=== PATIENT | female | born 1940 | race African-American/Black ===

== ENCOUNTER 2016-11-27 13:43 | Emergency (ER) | payer MEDICARE, MEDICAID ==
[2016-11-27] MEDS ORDERED: IBUPROFEN 600 MG TABLET PO ONE (14:17)
--- NOTE | 2016-11-27 14:20 | ER Document Report ---
ED Extremity Problem, Lower - General Chief Complaint: Knee Injury Stated Complaint: KNEE PAIN Time seen by provider: 14:19 Mode of Arrival: Wheelchair Information source: Patient Notes: 75-year-old female presents to ED for pain in her left knee. She states she hit the coffee table with her knee last night. States it hurts to walk now. TRAVEL OUTSIDE OF THE [place] IN LAST 30 DAYS: No - HPI Patient complains to provider of: Injury, Pain Location: Knee - Left Occurred: Yesterday Where: Home, Indoors Onset/Duration: Sudden, Persistent Severity: Moderate Pain Level: 3 Context: Direct blow Recent injury: Possibly Associated symptoms: Painful ambulation Exacerbated by: Movement, Walking Relieved by: Nothing - Related Data Allergies/Adverse Reactions: ampicillin [Ampicillin] Allergy (Verified 11/27/16 13:56) Past Medical History - General Information source: Patient - Social History Smoking Status: Former Smoker Cigarette use (# per day): No Chew tobacco use (# tins/day): No Smoking Education Provided: No Frequency of alcohol use: None Drug Abuse: None Occupation: retired Lives with: Other - Grandson Family History: DM, Hypertension Patient has suicidal ideation: No Patient has homicidal ideation: No - Past Medical History Cardiac Medical History: Reports: Hx Hypercholesterolemia, Hx Hypertension Pulmonary Medical History: Reports: None EENT Medical History: Reports: None Neurological Medical History: Reports: None Endocrine Medical History: Reports: None Renal/ Medical History: Reports: None Malignancy Medical History: Reports: None Musculoskeltal Medical History: Reports Hx Musculoskeletal Deformity Skin Medical History: Reports None Psychiatric Medical History: Reports: None Traumatic Medical History: Reports: None Infectious Medical History: Reports: None Surgical Hx: Negative Past Surgical History: Reports: None - Immunizations Hx Diphtheria, Pertussis, Tetanus Vaccination: Yes Review of Systems - Review of Systems Constitutional: No symptoms reported EENT: No symptoms reported Cardiovascular: No symptoms reported Respiratory: No symptoms reported Gastrointestinal: No symptoms reported Genitourinary: No symptoms reported Female Genitourinary: No symptoms reported Musculoskeletal: Joint pain - Left knee injury Skin: No symptoms reported Hematologic/Lymphatic: No symptoms reported Neurological/Psychological: No symptoms reported Physical Exam - Vital signs Vitals: Temp Pulse Resp BP Pulse Ox 98.7 F 68 16 148/99 H 98 11/27/16 13:58 11/27/16 13:58 11/27/16 13:58 11/27/16 13:58 11/27/16 13:58 Interpretation: Normal - General General appearance: Appears well, Alert - HEENT Head: Normocephalic, Atraumatic Eyes: Normal Pupils: PERRL - Respiratory Respiratory status: No respiratory distress Chest status: Nontender Breath sounds: Normal Chest palpation: Normal - Cardiovascular Rhythm: Regular Heart sounds: Normal auscultation Murmur: No - Abdominal Inspection: Normal Distension: No distension Bowel sounds: Normal Tenderness: Nontender Organomegaly: No organomegaly - Back Back: Normal, Nontender - Extremities General upper extremity: Normal inspection, Nontender, Normal color, Normal ROM , Normal temperature General lower extremity: Normal inspection, Normal color, Normal temperature, Normal weight bearing. No: Kriss's sign Knee: Tender, Ecchymosis, Pain with ROM, Patellar tendon intact. No: Abrasion, Dislocation, Drawer's test instability, Instability, Joint effusion, Laceration , Laxity with valgus stress, Laxity with varus stress, Popliteal fossa tender, Tender joint line - Neurological Neuro grossly intact: Yes Cognition: Normal Orientation: AAOx4 [place] Scale Eye Opening: Spontaneous [place] Scale Verbal: Oriented [place] Com[place] Scale Motor: Obeys Commands [place] Com[place] Scale Total: 15 Speech: Normal Motor strength normal: LUE, RUE, LLE, RLE Sensory: Normal - Psychological Associated symptoms: Normal affect, Normal mood - Skin Skin Temperature: Warm Skin Moisture: Dry Skin Color: Normal Course - Re-evaluation Re-evalutation: 11/27/16 17:04 Discussed x-ray report with patient and written report given to patient to follow-up with her primary doctor. No acute injuries to her knee arthritis. Patient encouraged to use elevation ice and ibuprofen. - Vital Signs Vital signs: Temp Pulse Resp BP Pulse Ox 98.4 F 61 16 163/106 H 97 11/27/16 15:46 11/27/16 15:46 11/27/16 15:46 11/27/16 15:46 11/27/16 15:46 - Diagnostic Test Radiology reviewed: Image reviewed, Reports reviewed Discharge - Discharge Clinical Impression: Contusion of left knee Qualifiers: Encounter type: initial encounter Qualified Code(s): S80.02XA - Contusion of left knee, initial encounter Condition: Stable Disposition: HOME, SELF-CARE Additional Instructions: CONTUSION: Your injury has resulted in a contusion -- a crushing of the deep tissues. No injury to important structures was detected during the physician's exam. Contusions vary in the amount of pain they cause, and in the length of time required for healing. Typically, the area will become bruised, and will remain painful to touch for two or three weeks. However, most patients are back to working and playing within a few days. After the initial period of rest and cold-packs, your symptoms (together with the doctor's recommendations) will determine how rapidly you can get back to full activity. Usually this means "do what feels okay, but don't do things that hurt." If re-examination was recommended, it's important to follow up as instructed. Call the doctor or return any time if pain increases, if swelling becomes severe, if you develop numbness or weakness in an injured extremity, or if any other alarming symptoms occur. USE OF TYLENOL (ACETAMINOPHEN): Acetaminophen may be taken for pain relief or fever control. It's much safer than aspirin, offering a wider range of "safe" dosages. It is safe during . Some brand names are Tylenol, Panadol, Datril, Anacin 3, Tempra, and Liquiprin. Acetaminophen can be repeated every four hours. The following are maximum recommended dosages: WEIGHT Dose Drops Elixir Chewable( 80mg) (LBS.) drprs=droppers tsp=teaspoon 6 40 mg 0.4 ml (1/2) 6-11 80 mg 0.8 ml (full) tsp 1 tab 12-16 120 mg 1 1/2 drprs 3/4 tsp 1 1/2 tabs 17-23 160 mg 2 drprs 1 tsp 2 tabs 24-30 240 mg 3 drprs 1 1/2 tsp 3 tabs 30-35 320 mg 2 tsp 4 tabs 36-41 360 mg 2 1/4 tsp 4 1/2 tabs 42-47 400 mg 2 1/2 tsp 5 tabs 48-53 480 mg 3 tsp 6 tabs 54-59 520 mg 3 1/4 tsp 6 1/2 tabs 60-64 560 mg 3 1/2 tsp 7 tabs 65-70 600 mg 3 3/4 tsp 7 1/2 tabs 71-76 640 mg 4 tsp 8 tabs 77-82 720 mg 4 1/2 tsp 9 tabs 83-88 800 mg 5 tsp 10 tabs >89 pounds or adults 650 mg to 900 mg Acetaminophen can be repeated every four hours. Maximum dose not to exceed 4000 mg a day. These maximum recommended dosages are slightly higher than the dosages written on the product container, but these dosages are very safe and below the toxic dosage for acetaminophen. RACHNA WRAP: A compression dressing (rachna wrap) has been placed. This helps hold the area still. It limits swelling and internal bleeding. The wrap should be comfortably snug -- not tight. You should feel a sense of pressure, but not severe pain under the wrap. Unless the physician tells you otherwise, you can adjust the wrap for comfort. If the wrap causes symptoms suggesting it's too tight -- uncomfortable pressure, swelling or discoloration beyond the wrap, numbness, or severe pain - - you must loosen the wrap. If these symptoms don't resolve promptly, return for re-evaluation. USE OF CRUTCHES: The doctor has recommended that you not bear weight at this time. You will need to use crutches. Adjust the crutches so the tops come to about two inches under the armpit while you are standing upright. Use your hands -- not your armpits -- to support your weight. To get into a chair, support yourself with one crutch on the injured side. Hold the chair with the other hand, then lower yourself while putting all your weight on the good leg. Going up stairs is `good leg up, step up, then bring up crutches and bad leg.' Down stairs is `bad leg and crutches down, then bring good leg down.' If you develop numbness or swelling in an arm or hand, you are using the crutches incorrectly. Return if you are having any problems with the crutches. ICE & ELEVATION: Apply ice packs frequently against the painful area. Many different schedules are recommended, such as "20 minutes on, 20 minutes off" or "one hour ice, two hours rest." If you need to work, you may need to go longer between ice treatments. You should plan to have the area ice packed AT LEAST one- fourth of the time. The ice should be applied over the wrap, tape, or splint, or over a layer of cloth -- not directly against the skin. Some ice bags have a built-in cloth and can be put directly on the skin. Your injured part should be elevated as much as possible over the next 48 hours. Try to keep the injury above the level of the heart. Avoid use of the injured area. Elevation and rest will decrease the swelling. USE OF DESH-EHZ-ELPLTJY IBUPROFEN: Ibuprofen (Advil, Nuprin, Medipren, Motrin IB) is a medication for fever and pain control. In addition, it has anti- inflammatory effects which may be beneficial, especially in the treatment of injuries. It's best to take ibuprofen with food. Persons with ulcer disease or allergy to aspirin should notify their physician of this before taking ibuprofen. Ibuprofen can be given every four to six hours, for a total of four doses daily. Age Pain or fever dose Antiinflammatory dose 6-8 yr 200 mg (1 tab) 200 mg (1 tab) 9-11 yr 200 mg (1 tab) 200-400 mg (1-2 tab) 11-14 yr 200-400 mg (1-2 tab) 400 mg (2 tab) 15-adult 400 mg (2 tab) 600 mg (3 tab) FOLLOW-UP CARE: If you have been referred to a physician for follow-up care, call the physician s office for an appointment as you were instructed or within the next two days. If you experience worsening or a significant change in your symptoms, notify the physician immediately or return to the Emergency Department at any time for re-evaluation. Forms: Elevated Blood Pressure Referrals: ANGEL TAM MD [Primary Care Provider] - Follow up as needed
[2016-11-27 15:47] VITALS: BP 163/106
== END 2016-11-27 15:50 | disposition home or self-care (01) ==
LOC: ER 13:43
DX: S80.02XA Contusion of left knee, initial encounter (principal); M25.562 Pain in left knee; Z87.891 Personal history of nicotine dependence; X58.XXXA Exposure to other specified factors, initial encounter
CPT/HCPCS: 99283; 73562; A9270

== ENCOUNTER 2017-02-26 06:41 | Emergency (ER) | payer MEDICARE, MEDICAID ==
[2017-02-26] MEDS ORDERED: ONDANSETRON 4 MG TAB.RAPDIS PO ONE (08:58)
[2017-02-26] MEDS ORDERED: OXYCODONE-ACETAMINOPHEN 5-325 MG TABLET PO ONE (08:58)
--- NOTE | 2017-02-26 09:34 | ER Document Report ---
HPI - HPI Patient complains to provider of: Left shoulder muscle strain Onset: Other - Today Onset/Duration: Gradual Quality of pain: Throbbing Pain Level: 4 Context: 76-year-old female strained her left trapezius muscle cooking a lot of food for family reunion this weekend. It started on Saturday and has gotten worse. Movement makes it worse. Heat seems to help. No chest pain or shortness of breath Associated Symptoms: None Exacerbated by: Movement Relieved by: Denies Recently seen / treated by doctor: Yes - ROS ROS Unobtainable: Yes ROS unobtainable due to patient's medical condition - REPRODUCTIVE Reproductive: DENIES: : - DERM Skin Color: Normal Past Medical History - General Information source: Patient - Social History Smoking Status: Never Smoker Frequency of alcohol use: None Drug Abuse: None Lives with: Alone Family History: DM, Hypertension Patient has suicidal ideation: No Patient has homicidal ideation: No - Past Medical History Cardiac Medical History: Reports: Hx Hypercholesterolemia, Hx Hypertension Renal/ Medical History: Denies: Hx Peritoneal Dialysis Musculoskeltal Medical History: Reports Hx Musculoskeletal Deformity Surgical Hx: Negative - Immunizations Hx Diphtheria, Pertussis, Tetanus Vaccination: Yes Vertical Provider Document - CONSTITUTIONAL Agree With Documented VS: Yes Exam Limitations: No Limitations General Appearance: Mild Distress - INFECTION CONTROL TRAVEL OUTSIDE OF THE [place] IN LAST 30 DAYS: No - HEENT HEENT: Atraumatic, Normocephalic - NECK Neck: Supple Notes: Point tender left trapezius muscle - RESPIRATORY Respiratory: Breath Sounds Normal, No Respiratory Distress O2 Sat by Pulse Oximetry: 100 - CARDIOVASCULAR Cardiovascular: Regular Rate, Regular Rhythm - BACK Back: Normal Inspection - Tender - MUSCULOSKELETAL/EXTREMETIES Musculoskeletal/Extremeties: FROM, Tender - The above Notes: Avoid movement of the left shoulder because it makes the muscle hurts worse - NEURO Level of Consciousness: Awake, Alert, Appropriate Motor/Sensory: No Motor Deficit, No Sensory Deficit - DERM Integumentary: Warm, Dry, No Rash Course - Vital Signs Vital signs: Temp Pulse Resp BP Pulse Ox 97.8 F 59 L 16 139/83 H 100 02/26/17 07:18 02/26/17 07:18 02/26/17 07:18 02/26/17 07:18 02/26/17 07:18 Discharge - Discharge Clinical Impression: Strain of left trapezius muscle Qualifiers: Encounter type: initial encounter Qualified Code(s): S46.812A - Strain of other muscles, fascia and tendons at shoulder and upper arm level, left arm, initial encounter Condition: Good Disposition: HOME, SELF-CARE Instructions: Warm Packs ([facility]), Sling as Treatment ([facility]), Temporary Sling ([facility]) Additional Instructions: warm compress to er if worse see your doctor for follow up sling to help rest the left trapezius muscle Please complete the patient satisfaction survey if you get one, and return it.. If you do not receive a survey, then you can go to the [facility] website, [email or web address] and place your comments about your very good care. Thank you very much. It was a pleasure being your medical provider today. Prescriptions: Oxycodone HCl/Acetaminophen [Percocet 5-325 mg Tablet] 1 tab PO ASDIR PRN #15 tablet PRN Reason: Referrals: ANGEL TAM MD [Primary Care Provider] - Follow up as needed
[2017-02-26 10:12] VITALS: BP 143/78
== END 2017-02-26 10:13 | disposition home or self-care (01) ==
LOC: ER 06:41
DX: S29.012A Strain of muscle and tendon of back wall of thorax, initial encounter (principal); X58.XXXA Exposure to other specified factors, initial encounter; I10 Essential (primary) hypertension
CPT/HCPCS: 99283; L3650; A9270 ×2; S0119

== ENCOUNTER 2017-05-17 11:41 | Emergency (ER) | payer MEDICARE, MEDICAID ==
--- NOTE | 2017-05-17 11:57 | ER Document Report ---
HPI - HPI Pain Level: 5 Notes: Patient is a 76-year-old female with a history of hypertension who presents the ED complaining of left plantar foot pain that began this morning. Patient states that she was push mowing her yard yesterday which has been the most stress that she has put on her feet in a while. Patient states that she woke up with the pain on her first morning step and has pain in that area since then. Patient tried Epsom salts soaking it with minimal relief. Patient does take Vicodin for pain for her previous shoulder surgery. The pain does not radiate. She has not noticed any redness, bruising, or deformity to the area. Patient denies any smoking or drug use. She denies any other significant past medical history. Denies any headache, fever, URI, sore throat, chest pain, palpitations, syncope, cough, shortness of breath, wheeze, dyspnea, abdominal pain, nausea/vomiting/diarrhea, back pain, numbness/tingling, or rash. - ROS Notes: REVIEW OF SYSTEMS: CONSTITUTIONAL : Denies fever, chills, or sweats. Denies recent illness. EENT: Denies eye, ear, throat, or mouth pain or symptoms. Denies nasal or sinus congestion or discharge. Denies throat, tongue, or mouth swelling or difficulty swallowing. CARDIOVASCULAR: Denies chest pain. Denies palpitations or racing or irregular heart beat. Denies ankle edema. RESPIRATORY: Denies cough, cold, or chest congestion. Denies shortness of breath, difficulty breathing, or wheezing. GASTROINTESTINAL: Denies abdominal pain or distention. Denies nausea, vomiting , or diarrhea. Denies blood in vomitus, stools, or per rectum. Denies black, tarry stools. Denies constipation. GENITOURINARY: Denies difficulty urinating, painful urination, burning, frequency, blood in urine, or discharge. MUSCULOSKELETAL: see hpi SKIN: Denies rash, lesions or sores. NEUROLOGICAL: Denies confusion or altered mental status. Denies passing out or loss of consciousness. Denies dizziness or lightheadedness. Denies headache. Denies weakness or paralysis or loss of use of either side. Denies problems with gait or speech. Denies sensory loss, numbness, or tingling. ALL OTHER SYSTEMS REVIEWED AND NEGATIVE. Dictation was performed using [employer] voice recognition software - REPRODUCTIVE Reproductive: DENIES: : Past Medical History - Social History Smoking Status: Never Smoker Family History: DM, Hypertension - Past Medical History Cardiac Medical History: Reports: Hx Hypercholesterolemia, Hx Hypertension Renal/ Medical History: Denies: Hx Peritoneal Dialysis Musculoskeltal Medical History: Reports Hx Musculoskeletal Deformity - Immunizations Hx Diphtheria, Pertussis, Tetanus Vaccination: Yes Vertical Provider Document - CONSTITUTIONAL Agree With Documented VS: Yes Notes: PHYSICAL EXAMINATION: GENERAL: Well-appearing, well-nourished and in no acute distress. LUNGS: Breath sounds clear to auscultation bilaterally and equal. No wheezes rales or rhonchi. HEART: Regular rate and rhythm without murmurs, rubs, gallops. Musculoskeletal: Lt foot/ankle: FROM to passive/active. Strength 5+/5. + tenderness to plantar fascia. No bony tenderness. N/V intact distal. Extremities: No cyanosis, clubbing, or edema b/l. Peripheral pulses 2+. Capillary refill less than 3 seconds. NEUROLOGICAL: Normal speech, ataxic gait. Normal sensory, motor exams PSYCH: Normal mood, normal affect. SKIN: Warm, Dry, normal turgor, no rashes or lesions noted. - INFECTION CONTROL TRAVEL OUTSIDE OF THE [place] IN LAST 30 DAYS: No - RESPIRATORY O2 Sat by Pulse Oximetry: 98 Course - Re-evaluation Re-evalutation: 05/17/17 12:08 Patient is an afebrile, well-hydrated, 76-year-old female who presents the ED with left foot pain, suspect plantar fasciitis based on H&P today. Vitals are stable. PE otherwise unremarkable for any neurovascular compromise. Low suspicion/risk for any septic joint, sepsis, fracture, dislocation. Patient is aware that her condition can change from initial presentation and she needs to monitor symptoms closely and seek medical attention if any acute changes. No other imaging warranted today. Crutches were provided. I will send her home with a prescription for naproxen to use as directed. Conservative measures otherwise for symptoms. Recheck with your PCM in 2-3 days. Consider consult with orthopedics/physical therapy. Return to the ED with any worsening/ concerning symptoms otherwise as reviewed discharge. Patient is in agreement. - Vital Signs Vital signs: Temp Pulse Resp BP Pulse Ox 97.9 F 86 18 140/95 H 98 05/17/17 11:43 05/17/17 11:43 05/17/17 11:43 05/17/17 11:43 05/17/17 11:43 Discharge - Discharge Clinical Impression: Plantar fasciitis of left foot Condition: Stable Disposition: HOME, SELF-CARE Instructions: Plantar Fasciitis or Heel Spur ([facility]), Ice & Elevation ([facility]), Warm Packs ([facility]), Epsom Salt Soaks ([facility]) Additional Instructions: Rest, Ice, Compression, Elevation Tylenol/ibuprofen as needed Light stretches daily Strength exercises as able Moist heat and massage may help F/u with your PCP in 2-3 days for a recheck Consider consult(s) with Orthopedics/physical therapy for ongoing/worsening symptoms Return to the ED with any worsening symptoms and/or development of fever, headache, chest pain, palpitations, syncope, shortness of breath, trouble breathing, abdominal pain, n/v/d, muscle weakness/paralysis, numbness/tingling, swelling, redness, or other worsening symptoms that are concerning to you. Prescriptions: Naproxen 500 mg PO BID PRN #30 tablet PRN Reason: Forms: Elevated Blood Pressure Referrals: [facility] [Provider Group] - Follow up as needed ANGEL TAM MD [ACTIVE STAFF] - Follow up in 3-5 days
[2017-05-17 12:35] VITALS: BP 143/96
== END 2017-05-17 12:37 | disposition home or self-care (01) ==
LOC: ER 11:41
DX: M72.2 Plantar fascial fibromatosis (principal); M79.672 Pain in left foot; I10 Essential (primary) hypertension; Z98.890 Other specified postprocedural states
CPT/HCPCS: 99283

== ENCOUNTER 2018-05-31 17:05 | Inpatient (IN) | payer MEDICARE, MEDICAID ==
--- NOTE | 2018-05-31 17:27 | RADIOLOGY REPORT (SQ) ---
EXAM DESCRIPTION: CT HEAD WITHOUT COMPLETED DATE/TIME: 05/31/2018 5:13 pm REASON FOR STUDY: bed 11 stroke alert confused, difficulty speaking COMPARISON: None. TECHNIQUE: Axial images acquired through the brain without intravenous contrast. Images reviewed wi th bone, brain and subdural windows. Additional sagittal and coronal reconstructions were generated. Images stored on PACS. All CT scanners at this facility use dose modulation, iterative reconstruction, and/or weight based d osing when appropriate to reduce radiation dose to as low as reasonably achievable (ALARA). [facility]: Dose Right [facility]: CareDose [facility]: Dose Right [facility]: Teradose 4D [facility]: [employer] RADIATION DOSE: CT Rad equipment meets quality standard of care and radiation dose reduction techniq ues were employed. CTDIvol: 55.2 mGy. DLP: 1084 mGy-cm. mGy. LIMITATIONS: None. FINDINGS: VENTRICLES: Normal size and contour. CEREBRUM: Low-attenuation from acute or early subacute infarct in the left frontal lobe inferiorly on axial images 16-19, and in the anterior left frontal lobe over the convexity on axial images 24-28. Mild local mass effect with sulcal effacement. No acute superimposed hemorrhage. No midline shift. CEREBELLUM: No masses. No hemorrhage. No alteration of density. No evidence for acute infarction. EXTRAAXIAL SPACES: No fluid collections. No masses. ORBITS AND GLOBE: No intra- or extraconal masses. Normal contour of globe without masses. CALVARIUM: No fracture. PARANASAL SINUSES: No fluid or mucosal thickening. SOFT TISSUES: No mass or hematoma. OTHER: Very heavily calcified parasellar carotid arteries. 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 EVIDENCE OF ACUTE STROKE: Yes COMMENT: Pertinent findings on the imaging study reported as a CRITICAL RESULT to Dr. Miller at17: 12 on 05/31/2018. Category of Critical Result: CT stroke alert Quality ID # [id number]: Final reports with documentation of one or more dose reduction techniques (e.g., Au tomated exposure control, adjustment of the mA and/or kV according to patient size, use of iterative reconstruction technique) TECHNICAL DOCUMENTATION: JOB ID: [id number] [employer]- All Rights Reserved Reading location - IP/workstation name: [email or web address]
--- NOTE | 2018-05-31 17:30 | RADIOLOGY REPORT (SQ) ---
EXAM DESCRIPTION: CHEST SINGLE VIEW COMPLETED DATE/TIME: 05/31/2018 5:20 pm REASON FOR STUDY: bed 11 stroke alert COMPARISON: None. EXAM PARAMETERS: NUMBER OF VIEWS: One view. TECHNIQUE: Single frontal radiographic view of the chest acquired. RADIATION DOSE: NA LIMITATIONS: None. FINDINGS: LUNGS AND PLEURA: No opacities, masses or pneumothorax. No pleural effusion. MEDIASTINUM AND HILAR STRUCTURES: No masses. Contour normal. HEART AND VASCULAR STRUCTURES: Marked cardiomegaly. BONES: No acute findings. HARDWARE: None in the chest. OTHER: No other significant finding. IMPRESSION: NO ACUTE RADIOGRAPHIC FINDING IN THE CHEST. MARKED CARDIOMEGALY TECHNICAL DOCUMENTATION: JOB ID: [id number] [employer]- All Rights Reserved Reading location - IP/workstation name: [email or web address]
[2018-05-31 17:44] LABS: ABSOLUTE EOSINOPHILS # (AUTO) 0.1 10^3/uL (0.0-0.6); ABSOLUTE MONOCYTES (AUTO) 0.7 10^3/uL (0.1-1.4); BASOPHILS % (AUTO) 0.5 % (0-2); EOSINOPHILS % (AUTO) 0.7 % (0-6); HEMATOCRIT 39.6 % (36.0-47.0); LYMPHOCYTES % (AUTO) 12.9 % (13-45); MEAN CORPUSCULAR HEMOGLOBIN 27.1 pg (27.0-33.4); MEAN CORPUSCULAR HGB CONC 32.7 g/dL (32.0-36.0); MEAN CORPUSCULAR VOLUME 83 fl (80-97); MONOCYTES % (AUTO) 9.3 % (3-13); PLATELET COUNT 255 10^3/uL (150-450); RED BLOOD COUNT 4.78 10^6/uL (3.72-5.28); RED CELL DISTRIBUTION WIDTH 14.4 % (11.5-14.0); SEGMENTED NEUTROPHILS % (AUTO) 76.6 % (42-78); TOTAL CELLS COUNTED % (AUTO) 100 %; WHITE BLOOD COUNT 7.9 10^3/uL (4.0-10.5)
[2018-05-31 17:51] LABS: INTERNATIONAL RATION (INR) 0.98; PROTHROMBIN TIME 13.5 SEC (11.4-15.4)
[2018-05-31 17:52] LABS: PARTIAL THROMBOPLASTIN TIME 25.9 SEC (23.5-35.8)
[2018-05-31 18:10] LABS: ALANINE AMINOTRANSFERASE 32 U/L (9-52); ALBUMIN 4.6 g/dL (3.5-5.0); ALKALINE PHOSPHATASE 90 U/L (38-126); ANION GAP 9 (5-19); ASPARTATE AMINO TRANSFERASE 42 U/L (14-36); BILIRUBIN,DIRECT 0.6 mg/dL (0.0-0.4); BILIRUBIN,TOTAL 1.1 mg/dL (0.2-1.3); BLOOD UREA NITROGEN 16 mg/dL (7-20); CALCIUM 10.1 mg/dL (8.4-10.2); CARBON DIOXIDE 26 mmol/L (22-30); CHLORIDE 105 mmol/L (98-107); CREATINE KINASE 539 U/L (30-135); GLUCOSE 90 mg/dL (75-110); POTASSIUM 3.7 mmol/L (3.6-5.0); SODIUM 140.2 mmol/L (137-145); TOTAL PROTEIN 8.4 g/dL (6.3-8.2)
[2018-05-31 18:22] LABS: CREATINE KINASE MB 4.99 ng/mL (<4.55); TROPONIN I 0.02 ng/mL
[2018-05-31 18:37] LABS: APPEARANCE,URINE CLOUDY; BILIRUBIN,URINE NEGATIVE (NEGATIVE); COLOR,URINE YELLOW; GLUCOSE, URINE NEGATIVE (NEGATIVE); KETONES,URINE TRACE mg/dL (NEGATIVE); LEUKOCYTE ESTERASE,URINE SMALL (NEGATIVE); NITRITE,URINE POSITIVE (NEGATIVE); PROTEIN,URINE 30 mg/dL (NEGATIVE); URINE SPECIFIC GRAVITY 1.017; UROBILINOGEN,URINE NEGATIVE mg/dL (<2.0)
[2018-05-31] MEDS ORDERED: ACETAMINOPHEN 650 MG SUPP.RECT PR PRN (18:50)
[2018-05-31] MEDS ORDERED: POTASSI CL 20 MEQ/1/2NS 1L 20 MEQ/1,000 ML RTUINJ IV PRN (18:50)
[2018-05-31] MEDS ORDERED: ONDANSETRON HCL INJ/PF 4 MG/2 ML SDV IV PRN (18:50)
[2018-05-31] MEDS ORDERED: LABETALOL HCL INJ 20 MG/4 ML DISP.SYRIN IV PRN (18:50)
[2018-05-31] MEDS ORDERED: MORPHINE SULFATE 10 MG/ML INJ IV PRN (19:12)
--- NOTE | 2018-05-31 19:19 | EKG REPORT ---
SEVERITY:- ABNORMAL ECG - ATRIAL FIBRILLATION, V-RATE 49-89 VENTRICULAR PREMATURE COMPLEX BORDERLINE LEFT AXIS DEVIATION CONSIDER ANTEROSEPTAL INFARCT BORDERLINE T ABNORMALITIES, INFERIOR LEADS : Confirmed by: Birgit Bishop 31-May-2018 19:18:34
--- NOTE | 2018-05-31 19:22 | ER Document Report ---
ED Neuro Symptoms/Deficit - General Chief Complaint: Altered Mental Status Stated Complaint: POSSIBLE STROKE Time Seen by Provider: 05/31/18 18:03 Notes: Patient was found by neighbors laying on her porch, down for an unknown amount of time. Neighbors say that she has been acting different for the past couple of days. At this time, patient is not speaking and did not speak with EMS all the way here to the hospital. We do not know if she has had a previous stroke. No family or anyone else is available to give any further information. I believe the patient lives alone. At this time, she will follow minor instructions such as holding her arm up when I let go of it, attempting to smile when I asked her to do so. However, she does not carry on a conversation. TRAVEL OUTSIDE OF THE [place] IN LAST 30 DAYS: No - Related Data Allergies/Adverse Reactions: ampicillin [Ampicillin] Allergy (Verified 05/17/17 11:47) Past Medical History - Social History Smoking Status: Unknown if Ever Smoked Family History: Reviewed & Not Pertinent, DM, Hypertension Patient has suicidal ideation: No Patient has homicidal ideation: No - Past Medical History Cardiac Medical History: Reports: Hx Hypercholesterolemia, Hx Hypertension Neurological Medical History: Denies: Hx Cerebrovascular Accident Musculoskeletal Medical History: Reports Hx Musculoskeletal Deformity - Immunizations Hx Diphtheria, Pertussis, Tetanus Vaccination: Yes Review of Systems - Review of Systems -: Yes ROS unobtainable due to patient's medical condition Physical Exam - Vital signs Vitals: Pulse Resp BP Pulse Ox 84 14 185/100 H 98 05/31/18 17:05 05/31/18 17:05 05/31/18 17:05 05/31/18 17:05 Interpretation: Hypertensive - Mild - Notes Notes: PHYSICAL EXAMINATION: GENERAL: Well-appearing, in no acute distress. Blood pressure slightly elevated at 185/100. HEAD: Atraumatic, normocephalic. EYES: Pupils equal round and reactive to light, extraocular movements intact. ENT: oropharynx clear without exudates. Moist mucous membranes. NECK: Normal range of motion, supple. No carotid bruits heard. LUNGS: Breath sounds clear and equal bilaterally. HEART: Irregularly irregular rhythm. No murmurs heard. Appears to be A. fib on the monitor. ABDOMEN: Soft, nontender. No guarding or rebound. No masses. BACK: No tenderness throughout entire back. EXTREMITIES: Normal range of motion without pain. NEUROLOGICAL: Cannot stand or ambulate. Does not speak. Will attempt to follow requests such as attempts to smile when requested. Will hold up either arm when I raise it above her body. No facial asymmetry noted. Grossly normal sensory, motor, and reflex exams. Awake, alert, but unable to assess if she is oriented. PSYCH: Unable to assess. SKIN: Warm, dry, no rashes. Course - Re-evaluation Re-evalutation: 05/31/18 19:30 It is uncertain how long the patient has been down with her apparent stroke. It has been approximately an hour since her neighbors found her upon her arrival to the emergency department. No one knows how long she was on the porch prior to the neighbors discovering her. She does not fit into the 3-hour or 4-1/2-hour window is because we do not know how long she was down. - Vital Signs Vital signs: Temp Pulse Resp BP Pulse Ox 98.7 F 55 L 16 178/92 H 98 05/31/18 17:57 05/31/18 17:57 05/31/18 19:01 05/31/18 19:01 05/31/18 19:01 - Laboratory Result Diagrams: 05/31/18 17:30 05/31/18 17:30 Laboratory results interpreted by me: 05/31/18 05/31/18 05/31/18 17:30 17:30 17:30 RDW 14.4 H Lymphocytes % 12.9 L Est GFR ( Amer) 57 L Est GFR (Non-Af Amer) 47 L Direct Bilirubin 0.6 H AST 42 H Creatine Kinase 539 H CK-MB (CK-2) 4.99 H Total Protein 8.4 H Urine Protein Urine Ketones Urine Blood Urine Nitrite Ur Leukocyte Esterase 05/31/18 17:35 RDW Lymphocytes % Est GFR ( Amer) Est GFR (Non-Af Amer) Direct Bilirubin AST Creatine Kinase CK-MB (CK-2) Total Protein Urine Protein 30 H Urine Ketones TRACE H Urine Blood SMALL H Urine Nitrite POSITIVE H Ur Leukocyte Esterase SMALL H - Diagnostic Test Radiology reviewed: Image reviewed, Reports reviewed - Fracture CT scan of the brain shows a left frontal, nonhemorrhagic, subacute stroke. - EKG Interpretation by Me Rate: Normal Rhythm: A.Fib, PVC's Discharge - Discharge Clinical Impression: Stroke Condition: Stable Disposition: ADMITTED INPATIENT Admitting Provider: Hospitalist Unit Admitted: Telemetry Referrals: ANGEL TAM MD [Primary Care Provider] - Follow up as needed
--- NOTE | 2018-05-31 20:18 | PDOC H&P ---
History of Present Illness Admission Date/PCP: ANGEL TAM MD Patient complains of: Right-sided weakness History of Present Illness: GEN WHITE is a 77 year old female who presented to the emergency room with a history of waking this morning with right-sided weakness and the inability to speak. She is accompanied by her daughter who relates that she saw her mother last evening before supper and she was normal at that time. Using head nods and shakes Gen has been able to tell me that she was fine when she went to bed last night when she woke this morning she was unable to move her right arm or her right leg to any degree and was unable to speak or call out for help. She evidently crawled out onto her porch and was discovered by neighbors sometime later in the afternoon. EMS was summoned to bring her to the hospital. Upon arrival in the emergency room she was noted to be hypertensive 185/100 and had a right hemiparesis with an expressive aphasia. She has not identified any aggravating or ameliorating factors for her right sided weakness and a aphasia. She denies prior similar events. She admits that the sensation to her right upper and lower extremities as well as her right face is intact. She further admits that she has been having trouble swallowing her saliva and it tends to make her cough and sometimes gag. She denies headache, nausea, vomiting, chest pain, neck pain, palpitations, vertigo , lightheadedness, syncope, dyspnea, acute change in vision, acute change in hearing, acute change in her sense of smell and skin rashes. She admits to a past history of atrial fibrillation and also admits that she has been taking only aspirin as an anti-coagulant. She also has a history of hypertension and arthritis. Past Medical History Cardiac Medical History: Reports: Atrial Fibrillation, Hyperlipidema, Hypertension Pulmonary Medical History: Denies: Asthma, Chronic Obstructive Pulmonary Disease (COPD), Respiratory Failure EENT Medical History: Reports: None Neurological Medical History: Denies: Hemorrhagic CVA, Ischemic CVA, Seizures Endocrine Medical History: Denies: Diabetes Mellitus Type 1, Diabetes Mellitus Type 2, Hyperthyroidism, Hypothyroidism Renal/ Medical History: Denies: Chronic Kidney Disease, Nephrolithiasis Malignancy Medical History: Reports: None GI Medical History: Denies: Crohn's Disease, Gastroesophageal Reflux Disease, Peptic Ulcer Disease, Ulcerative Colitis Musculoskeltal Medical History: Reports: Arthritis Denies: Fibromyalgia, Gout Skin Medical History: Denies: Eczema, Psoriasis Psychiatric Medical History: Denies: Alcohol Dependency, Dementia, Depression, General Anxiety Disorder, Substance Abuse, Tobacco Dependency Traumatic Medical History: Reports: None Hematology: Denies: Anemia, Sickle Cell Disease, Bleeding Tendencies Infectious Medical History: Reports: None Past Surgical History Past Surgical History: Reports: None Social History Information Source: Patient, Relative - Daughter Lives with: Alone Smoking Status: Never Smoker Frequency of Alcohol Use: None Hx Recreational Drug Use: No Hx Prescription Drug Abuse: No - Advance Directive Resuscitation Status: Full Code Surrogate healthcare decision maker:: Her daughter Family History Family History: Arthritis, DM, Hypertension Parental Family History Reviewed: Yes Children Family History Reviewed: Yes Sibling(s) Family History Reviewed.: Yes Medication/Allergy Home Medications: Hydrochlorothiazide 25 mg PO DAILY 04/15/14 Sulfamethoxazole/Trimethoprim [Bactrim Ds Tablet] 1 each PO BID #10 tablet 04/15 Tramadol HCl [Ultram] 50 mg PO BID #14 tablet 04/15/14 Oxycodone HCl/Acetaminophen [Percocet 5-325 mg Tablet] 1 - 2 tab PO Q4H PRN #14 tablet 10/16/14 Naproxen [Naprosyn 250 mg Tablet] 250 mg PO BID #10 tablet 06/11/15 Oxycodone HCl/Acetaminophen [Percocet 5-325 mg Tablet] 1 - 2 tab PO Q4HP PRN # 15 tablet 06/11/15 Lidocaine [Lidoderm 5% (700 mg) Transdermal Patch] 1 patch TP DAILY #15 adh..patch 07/13/16 Oxycodone HCl/Acetaminophen [Percocet 5-325 mg Tablet] 1 tab PO ASDIR PRN #15 tablet 02/26/17 Naproxen 500 mg PO BID PRN #30 tablet 05/17/17 Allergies/Adverse Reactions: ampicillin [Ampicillin] Allergy (Verified 05/17/17 11:47) Review of Systems Constitutional: ABSENT: chills, fever(s), headache(s) Eyes: ABSENT: visual disturbances, other - Ocular pain Ears: ABSENT: hearing changes, other - Ear pain Nose, Mouth, and Throat: ABSENT: headache(s), mouth pain, sore throat, vertigo Cardiovascular: ABSENT: chest pain, palpitations Respiratory: ABSENT: cough, dyspnea Gastrointestinal: ABSENT: abdominal pain, diarrhea, nausea, vomiting Genitourinary: ABSENT: dysuria, hematuria Musculoskeletal: PRESENT: joint swelling - With arthritis, other - Joint pain with arthritis. ABSENT: deformity Integumentary: ABSENT: pruritus, rash Neurological: PRESENT: as per HPI, abnormal speech, focal weakness, weakness. ABSENT: confusion, convulsions, dizziness, lack of coordination, memory loss, numbness, paresthesias, syncope, tingling, tremor(s), vertigo Psychiatric: ABSENT: anxiety, depression Endocrine: ABSENT: cold intolerance, heat intolerance, polydipsia, polyphagia, polyuria - [id number] Hematologic/Lymphatic: ABSENT: easy bleeding, easy bruising Physical Exam Vital Signs: Temp Pulse Resp BP Pulse Ox 98.7 F 55 L 16 178/92 H 98 05/31/18 17:57 05/31/18 17:57 05/31/18 19:01 05/31/18 19:01 05/31/18 19:01 Intake & Output 05/29/18 05/30/18 05/31/18 23:59 23:59 23:59 Weight 83 kg General appearance: PRESENT: no acute distress, cooperative, other - Unable to speak Head exam: PRESENT: atraumatic, normocephalic Eye exam: PRESENT: conjunctiva pink, EOMI, PERRLA. ABSENT: conjunctival injection, nystagmus, periorbital swelling, scleral icterus Ear exam: PRESENT: normal external ear exam. ABSENT: bleeding, drainage Mouth exam: PRESENT: dry mucosa, neck supple Neck exam: ABSENT: meningismus, thyromegaly, tracheal deviation Respiratory exam: PRESENT: clear to auscultation kyle, symmetrical, unlabored Cardiovascular exam: PRESENT: irregular rhythm. ABSENT: bradycardia, clicks, diastolic murmur, gallop, rubs, systolic murmur, tachycardia Pulses: PRESENT: normal carotid pulses, normal radial pulses, normal dorsalis pedis pul Vascular exam: PRESENT: normal capillary refill. ABSENT: pallor GI/Abdominal exam: PRESENT: normal bowel sounds, soft. ABSENT: distended, tenderness Rectal exam: PRESENT: deferred Extremities exam: ABSENT: clubbing, joint swelling, pedal edema Musculoskeletal exam: PRESENT: other - Right hemiparesis is noted with spared very limited movement and fingers and toes. ABSENT: deformity, dislocation Neurological exam: PRESENT: alert, awake, oriented to person, oriented to place , oriented to time, oriented to situation, motor sensory deficit - Right hemiparesis affecting the upper and lower extremities as well as the face with facial involvement being limited to the central 7th nerve distribution., aphasic - Expressive aphasia Psychiatric exam: PRESENT: appropriate affect, normal mood Skin exam: ABSENT: intact, jaundice, rash, urticaria Results Laboratory Results: 05/31/18 17:30 05/31/18 17:30 05/31/18 05/31/18 05/31/18 17:30 17:30 17:35 WBC 7.9 RBC 4.78 Hgb 13.0 Hct 39.6 MCV 83 MCH 27.1 MCHC 32.7 RDW 14.4 H Plt Count 255 Seg Neutrophils % 76.6 Lymphocytes % 12.9 L Monocytes % 9.3 Eosinophils % 0.7 Basophils % 0.5 Absolute Neutrophils 6.0 Absolute Lymphocytes 1.0 Absolute Monocytes 0.7 Absolute Eosinophils 0.1 Absolute Basophils 0.0 Sodium 140.2 Potassium 3.7 Chloride 105 Carbon Dioxide 26 Anion Gap 9 BUN 16 Creatinine 1.13 Est GFR ( Amer) 57 L Est GFR (Non-Af Amer) 47 L Glucose 90 Calcium 10.1 Total Bilirubin 1.1 AST 42 H ALT 32 Alkaline Phosphatase 90 Total Protein 8.4 H Albumin 4.6 Urine Color YELLOW Urine Appearance CLOUDY Urine pH 5.0 Ur Specific Dell 1.017 Urine Protein 30 H Urine Glucose (UA) NEGATIVE Urine Ketones TRACE H Urine Blood SMALL H Urine Nitrite POSITIVE H Ur Leukocyte Esterase SMALL H Urine WBC (Auto) 26 Urine RBC (Auto) 1 05/31/18 05/31/18 17:30 17:30 Creatine Kinase 539 H CK-MB (CK-2) 4.99 H Troponin I 0.020 EKG Comments: Atrial fibrillation with a well-controlled rate and occasional PVCs (my interpretation) Impressions: Chest X-Ray 05/31/18 17:06 IMPRESSION: NO ACUTE RADIOGRAPHIC FINDING IN THE CHEST. MARKED CARDIOMEGALY Head CT 05/31/18 17:06 IMPRESSION: Low-attenuation from acute or early subacute nonhemorrhagic left frontal infarcts. EVIDENCE OF ACUTE STROKE: Yes Status: Image reviewed by me Assessment & Plan - Diagnosis (1) Left acute arterial ischemic stroke, MCA (middle cerebral artery) Is this a current diagnosis for this admission?: Yes Plan: Patient is admitted to a telemetry bed on the stroke unit. She will have closely observe vital signs and neuro checks. She will be kept n.p.o. due to her difficulty with swallowing, until she can be evaluated by speech therapy. Her blood pressure will be controlled utilizing labetalol but permissive hypertension will be allowed up to a systolic blood pressure of 160 and/or a diastolic pressure of 100. An evaluation of her carotid arteries will be accomplished with a bilateral carotid doppler study, her cardiac functions will be evaluated with an echocardiogram and her brain and intracranial circulatory system will be evaluated with an MRI. (2) Chronic atrial fibrillation Is this a current diagnosis for this admission?: Yes Plan: Her cardiac functions will be evaluated with an echocardiogram and she will be started on appropriate anticoagulant therapy for her atrial fibrillation. Initially we will use Lovenox 80 mg subcu every 12 hours. Once she is able to take oral medications she will be started on Eliquis. (3) Hypertension Qualifiers: Hypertension type: essential hypertension Qualified Code(s): I10 - Essential (primary) hypertension Is this a current diagnosis for this admission?: Yes Plan: Her blood pressure will be controlled utilizing labetalol but permissive hypertension will be allowed up to a systolic blood pressure of 160 and/or a diastolic pressure of 100. Once she is able to take oral medications I will start her on an oral regimen for control of her hypertension. (4) Polyarticular osteoarthritis Is this a current diagnosis for this admission?: Yes Plan: Since patient is unable to take oral pain medications and given her renal status I will treat her arthritic pain on as-needed basis with intravenous morphine 2 mg every hour as needed for pain. (5) Bacteriuria with pyuria Is this a current diagnosis for this admission?: Yes Plan: Patient is noted to have white blood cells in her urine as well as positive nitrite on her dipstick exam. Urine culture will be obtained to evaluate for a significant infection versus bacteriuria with pyuria. Since patient is asymptomatic I would await culture results culture results prior to initiating any treatment if any treatment is indicated. - Time Time Spent: Greater than 70 Minutes Anticipated discharge: SNF Within: when bed available - Plan Summary Plan Summary: Patient is admitted to a telemetry bed on the stroke unit. She will have closely observed vital signs and neuro checks. She will be kept n.p.o. due to her difficulty with swallowing, until she can be evaluated by speech therapy. Her blood pressure will be controlled utilizing labetalol but permissive hypertension will be allowed up to a systolic blood pressure of 160 and/or a diastolic pressure of 100. An evaluation of her carotid arteries will be accomplished with a bilateral carotid doppler study, her cardiac functions will be evaluated with an echocardiogram and her brain and intracranial circulatory system will be evaluated with an MRI. I have personally reviewed her EKG which shows atrial fibrillation with a well- controlled rate and occasional PVCs. I have personally reviewed her CT scan of the head and of noted a significant hypodense lesion in the left middle cerebral artery distribution affecting the parietal and temporal lobes in Broca' s area. I have personally reviewed her chest x-ray and noted marked cardiomegaly without evidence of acute cardiopulmonary disease. A review of her laboratory studies reveals stage III a chronic renal insufficiency and her urinalysis would indicate that she has either an acute urinary tract infection or chronic bacteriuria. I have discussed the results of these studies extensively with Dr. Miller the physician who ordered them in the emergency room.
[2018-05-31] MEDS ORDERED: PROPRANOLOL HCL INJ/PF 1 MG/1 ML SDV IV PRN (20:22)
[2018-05-31] MEDS: ENOXAPARIN SODIUM INJ 80 MG/0.8 ML DISP.SYRIN SUBCUT SCH (23:46)
[2018-06-01] MEDS ORDERED: PROPRANOLOL HCL INJ/PF 1 MG/1 ML SDV IV ONE (00:02)
[2018-06-01] MEDS: POTASSI CL 20 MEQ/D5-1/2NS 1L 1,000 ML IV PRN ×2 (01:44→15:40)
[2018-06-01 05:59] LABS: ABSOLUTE LYMPHOCYTES (AUTO) 0.8 10^3/uL (0.5-4.7); ABSOLUTE MONOCYTES (AUTO) 0.5 10^3/uL (0.1-1.4); BASOPHILS % (AUTO) 0.3 % (0-2); EOSINOPHILS % (AUTO) 0.2 % (0-6); HEMATOCRIT 34.7 % (36.0-47.0); HEMOGLOBIN 11.7 g/dL (12.0-15.5); LYMPHOCYTES % (AUTO) 11.3 % (13-45); MEAN CORPUSCULAR HEMOGLOBIN 27.5 pg (27.0-33.4); MEAN CORPUSCULAR HGB CONC 33.7 g/dL (32.0-36.0); MEAN CORPUSCULAR VOLUME 82 fl (80-97); MONOCYTES % (AUTO) 6.4 % (3-13); PLATELET COUNT 155 10^3/uL (150-450); RED BLOOD COUNT 4.25 10^6/uL (3.72-5.28); RED CELL DISTRIBUTION WIDTH 14.5 % (11.5-14.0); SEGMENTED NEUTROPHILS % (AUTO) 81.8 % (42-78); TOTAL CELLS COUNTED % (AUTO) 100 %; WHITE BLOOD COUNT 7.4 10^3/uL (4.0-10.5)
[2018-06-01 06:32] LABS: ANION GAP 13 (5-19); BLOOD UREA NITROGEN 18 mg/dL (7-20); CALCIUM 9.6 mg/dL (8.4-10.2); CARBON DIOXIDE 19 mmol/L (22-30); CHLORIDE 107 mmol/L (98-107); CHOLESTEROL 170.79 mg/dL (0-200); GLUCOSE 116 mg/dL (75-110); POTASSIUM 3.8 mmol/L (3.6-5.0); SODIUM 138.6 mmol/L (137-145); TRIGLYCERIDES 50 mg/dL (<150)
[2018-06-01 06:43] LABS: DIRECT LDL 89 mg/dL (<100)
[2018-06-01] MEDS: PANTOPRAZOLE SODIUM 40 MG VIAL IV SCH (10:24)
[2018-06-01] MEDS: ENOXAPARIN SODIUM INJ 80 MG/0.8 ML DISP.SYRIN SUBCUT SCH (10:24)
--- NOTE | 2018-06-01 11:44 | RADIOLOGY REPORT (SQ) ---
EXAM DESCRIPTION: MRI HEAD WITHOUT COMPLETED DATE/TIME: 06/01/2018 9:05 am REASON FOR STUDY: Infarcts seen on prior CT, confusion, altered mental status COMPARISON: CT 05/31/2018 TECHNIQUE: Multiplanar imaging includes non-contrasted T1, T2, FLAIR, and diffusion with ADC map seq uences. Images stored on PACS. LIMITATIONS: None. FINDINGS: ANATOMY: No anomalies. Normal vascular flow voids. Pituitary fossa normal. CSF SPACES: Normal in size and contour. No hemorrhage. CEREBRUM: Wedge-shaped area of restricted diffusion of the inferior left frontal lobe. Additional wed ge-shaped area of restricted diffusion of the posterior left frontal lobe. These areas correspond to the finding on prior CT. Multiple additional small foci of restricted diffusion along the juarez-whit e matter junction medially of both frontal and parietal lobes. Additional tiny foci of restricted di ffusion of the body of the corpus callosum. All these regions hip associated intermediate FLAIR/ T2 signal. Sulci and gyri normal in size and contour. Normal white matter signal on FLAIR imaging. No evidence of hemorrhage, mass, or extraaxial fluid collection. POSTERIOR FOSSA: No signal alteration. No hemorrhage. No edema, masses or mass effect. Internal jhonny tory canals, cerebello-pontine angles, mastoids normal. DIFFUSION IMAGING: Negative for acute or sub-acute infarction. ORBITS: No masses. Globes normal. PARANASAL SINUSES: No fluid levels. Small probable mucous retention cyst of the sphenoid sinus. OTHER: No other significant finding. IMPRESSION: Multifocal areas of acute to subacute infarct predominantly within the left cerebral hem isphere within the left JA and bilateral MCA distributions, some areas corresponding to the prior CT . Given the distribution, findings are concerning for embolic infarcts. EVIDENCE OF ACUTE STROKE: NO. TECHNICAL DOCUMENTATION: JOB ID: [id number] [employer]- All Rights Reserved Reading location - IP/workstation name: [email or web address]
--- NOTE | 2018-06-01 13:24 | PDOC PROGRESS REPORT ---
Subjective Progress Note for:: 06/01/18 Subjective:: Patient was seen by the bedside, she was admitted yesterday by the hospitalist, she presented with aphasia MRI of the brain was done this morning, he demonstrated wedge shaped area of restricted diffusion of the inferior left frontal lobe, wedge shaped area of restricted diffusion of the posterior left frontal lobe. Multiple additional small foci of restricted diffusion along the juarez white matter junction medially of both frontal and parietal lobes also involved is the body corpus callosum, she has multifocal areas of acute infarct predominantly within the left cerebral hemisphere within the left JA on bilateral MCA distributions, also found was atrial fibrillation so clearly she has embolic stroke because of the multiple areas involved Reason For Visit: ACUTE LEFT MCA INFARCTION Physical Exam Vital Signs: Temp Pulse Resp BP Pulse Ox 98.8 F 89 18 156/85 H 100 06/01/18 07:53 06/01/18 07:53 06/01/18 07:53 06/01/18 07:53 06/01/18 07:53 Intake & Output 05/31/18 06/01/18 06/02/18 06:59 06:59 06:59 Intake Total 0 Output Total 0 Balance 0 Weight 82.5 kg General appearance: PRESENT: no acute distress Eye exam: PRESENT: PERRLA Respiratory exam: PRESENT: clear to auscultation kyle Cardiovascular exam: PRESENT: +S1, +S2 GI/Abdominal exam: PRESENT: soft Neurological exam: PRESENT: alert Results Laboratory Results: 06/01/18 05:25 06/01/18 05:25 06/01/18 06/01/18 05:25 05:25 WBC 7.4 RBC 4.25 Hgb 11.7 L Hct 34.7 L MCV 82 MCH 27.5 MCHC 33.7 RDW 14.5 H Plt Count 155 Seg Neutrophils % 81.8 H Lymphocytes % 11.3 L Monocytes % 6.4 Eosinophils % 0.2 Basophils % 0.3 Absolute Neutrophils 6.0 Absolute Lymphocytes 0.8 Absolute Monocytes 0.5 Absolute Eosinophils 0.0 Absolute Basophils 0.0 Sodium 138.6 Potassium 3.8 Chloride 107 Carbon Dioxide 19 L Anion Gap 13 BUN 18 Creatinine 1.04 Est GFR ( Amer) > 60 Est GFR (Non-Af Amer) 52 L Glucose 116 H Calcium 9.6 Triglycerides 50 Cholesterol 170.79 LDL Cholesterol Direct 89 VLDL Cholesterol 10.0 HDL Cholesterol 62 Impressions: Chest X-Ray 05/31/18 17:06 IMPRESSION: NO ACUTE RADIOGRAPHIC FINDING IN THE CHEST. MARKED CARDIOMEGALY Head CT 05/31/18 17:06 IMPRESSION: Low-attenuation from acute or early subacute nonhemorrhagic left frontal infarcts. EVIDENCE OF ACUTE STROKE: Yes Head MRI 06/01/18 08:00 IMPRESSION: Multifocal areas of acute to subacute infarct predominantly within the left cerebral hemisphere within the left JA and bilateral MCA distributions , some areas corresponding to the prior CT. Given the distribution, findings are concerning for embolic infarcts. EVIDENCE OF ACUTE STROKE: NO. 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 Is this a current diagnosis for this admission?: Yes Plan: She has embolic stroke, most likely from the atrium of the heart, she has A. fib , paroxysmal type, presently on Lovenox subcu every 12 now transitioned to IV heparin (2) Embolic stroke involving middle cerebral artery Qualifiers: Laterality of affected vessel: bilateral Qualified Code(s): I63.413 - Cerebral infarction due to embolism of bilateral middle cerebral arteries Is this a current diagnosis for this admission?: Yes (3) Paroxysmal atrial fibrillation Is this a current diagnosis for this admission?: Yes (4) Hypertension Qualifiers: Hypertension type: essential hypertension Qualified Code(s): I10 - Essential (primary) hypertension Is this a current diagnosis for this admission?: Yes
[2018-06-01 15:50] LABS: ABSOLUTE LYMPHOCYTES (AUTO) 0.9 10^3/uL (0.5-4.7); ABSOLUTE MONOCYTES (AUTO) 0.5 10^3/uL (0.1-1.4); ABSOLUTE NEUT (AUTO) 6.8 10^3/uL (1.7-8.2); BASOPHILS % (AUTO) 0.5 % (0-2); EOSINOPHILS % (AUTO) 0.1 % (0-6); HEMATOCRIT 33.5 % (36.0-47.0); HEMOGLOBIN 11.1 g/dL (12.0-15.5); LYMPHOCYTES % (AUTO) 11.1 % (13-45); MEAN CORPUSCULAR HEMOGLOBIN 27.3 pg (27.0-33.4); MEAN CORPUSCULAR HGB CONC 33.2 g/dL (32.0-36.0); MEAN CORPUSCULAR VOLUME 82 fl (80-97); MONOCYTES % (AUTO) 6.5 % (3-13); PLATELET COUNT 246 10^3/uL (150-450); RED BLOOD COUNT 4.07 10^6/uL (3.72-5.28); RED CELL DISTRIBUTION WIDTH 14.4 % (11.5-14.0); SEGMENTED NEUTROPHILS % (AUTO) 81.8 % (42-78); TOTAL CELLS COUNTED % (AUTO) 100 %; WHITE BLOOD COUNT 8.3 10^3/uL (4.0-10.5)
[2018-06-01 15:56] LABS: INTERNATIONAL RATION (INR) 1.02; PROTHROMBIN TIME 13.9 SEC (11.4-15.4)
[2018-06-01 15:57] LABS: PARTIAL THROMBOPLASTIN TIME 33.3 SEC (23.5-35.8)
[2018-06-01] MEDS: HEPARIN SOD (PORCINE) 1,000 UNIT/ML 10 ML VIAL IV PRN ×2 (16:23→23:23)
[2018-06-01] MEDS: HEPARIN SODIUM,PORCINE/D5W 25,000 UNIT/250 ML RTUINJ IV PRN (16:30)
[2018-06-01] MEDS: VALSARTAN 160 MG TABLET PO SCH (16:35)
[2018-06-01] MEDS ORDERED: ACETAMINOPHEN 325 MG TABLET PO PRN (21:45)
[2018-06-02 05:50] LABS: HEMATOCRIT 35.9 % (36.0-47.0); HEMOGLOBIN 11.9 g/dL (12.0-15.5); MEAN CORPUSCULAR HEMOGLOBIN 27.2 pg (27.0-33.4); MEAN CORPUSCULAR HGB CONC 33.1 g/dL (32.0-36.0); MEAN CORPUSCULAR VOLUME 82 fl (80-97); PLATELET COUNT 221 10^3/uL (150-450); RED BLOOD COUNT 4.36 10^6/uL (3.72-5.28); RED CELL DISTRIBUTION WIDTH 14.6 % (11.5-14.0); WHITE BLOOD COUNT 11.3 10^3/uL (4.0-10.5)
[2018-06-02 06:13] LABS: ANION GAP 12 (5-19); BLOOD UREA NITROGEN 14 mg/dL (7-20); CALCIUM 9.6 mg/dL (8.4-10.2); CARBON DIOXIDE 20 mmol/L (22-30); CHLORIDE 105 mmol/L (98-107); GLUCOSE 135 mg/dL (75-110); SODIUM 136.5 mmol/L (137-145)
[2018-06-02] MEDS: VALSARTAN 160 MG TABLET PO SCH (09:24)
[2018-06-02] MEDS: PANTOPRAZOLE SODIUM 40 MG VIAL IV SCH (09:24)
[2018-06-02] MEDS: HEPARIN SODIUM,PORCINE/D5W 25,000 UNIT/250 ML RTUINJ IV PRN (12:08)
[2018-06-02] MEDS: LABETALOL HCL INJ 20 MG/4 ML DISP.SYRIN IV PRN (12:13)
[2018-06-02] MEDS ORDERED: ONDANSETRON HCL INJ/PF 4 MG/2 ML SDV IV PRN (16:00)
--- NOTE | 2018-06-02 16:29 | RADIOLOGY REPORT (SQ) ---
EXAM DESCRIPTION: CAROTID DOPPLER COMPLETED DATE/TIME: 06/02/2018 4:12 pm REASON FOR STUDY: Left MCA infarct COMPARISON: None. TECHNIQUE: Grayscale ultrasound, Doppler velocity and spectra, and color Doppler images acquired of the extra-cranial carotid and vertebral arteries. Images stored on PACS. LIMITATIONS: None. FINDINGS: RIGHT CAROTID CCA Velocities: 55 centimeters/second ICA Velocities Peak systolic 51 cm/s. End diastolic 14 cm/s. Proximal ICA/CCA peak systolic ratio 0.9. Tortuous vessels. High bifurcation. LEFT CAROTID CCA Velocities: 67 centimeters/second ICA Velocities Peak systolic 72 cm/s. End diastolic 21 cm/s. Proximal ICA/CCA peak systolic ratio 1.1. High bifurcation. Tortuous vessels. VERTEBRAL ARTERIES: Antegrade flow. Normal waveforms. SUBCLAVIAN ARTERIES: No finding. OTHER: No other significant finding. IMPRESSION: NO HEMODYNAMICALLY SIGNIFICANT STENOSIS. TORTUOUS VESSELS. COMMENT: Quality ID #[id number]: Velocity criteria are extrapolated from the diameter data as defined by t he Society of Radiologists in Ultrasound Consensus Conference. Radiology 2003: 229; 340-346. TECHNICAL DOCUMENTATION: JOB ID: [id number] [employer]- All Rights Reserved Reading location - IP/workstation name: [email or web address]
[2018-06-02] MEDS: HEPARIN SOD (PORCINE) 1,000 UNIT/ML 10 ML VIAL IV PRN (17:17)
--- NOTE | 2018-06-02 20:24 | PDOC PROGRESS REPORT ---
Subjective Progress Note for:: 06/02/18 Subjective:: Patient was seen by the bedside she has embolic stroke while on IV anticoagulation on heparin she is alert, dysphasic, not talking much Reason For Visit: ACUTE LEFT MCA INFARCTION Physical Exam Vital Signs: Temp Pulse Resp BP Pulse Ox 99.2 F 80 18 173/101 H 98 06/02/18 19:32 06/02/18 19:52 06/02/18 19:32 06/02/18 19:32 06/02/18 19:52 Intake & Output 06/01/18 06/02/18 06/03/18 06:59 06:59 06:59 Intake Total 0 1119 192 Output Total 0 Balance 0 1119 192 Weight 82.5 kg 89.8 kg 89.8 kg General appearance: PRESENT: no acute distress Eye exam: PRESENT: PERRLA Mouth exam: PRESENT: neck supple Respiratory exam: PRESENT: clear to auscultation kyle Cardiovascular exam: PRESENT: +S1, +S2 GI/Abdominal exam: PRESENT: soft Neurological exam: PRESENT: alert, CN II-XII grossly intact Results Laboratory Results: 06/02/18 05:28 06/02/18 05:28 06/02/18 06/02/18 05:28 05:28 WBC 11.3 H RBC 4.36 Hgb 11.9 L Hct 35.9 L MCV 82 MCH 27.2 MCHC 33.1 RDW 14.6 H Plt Count 221 Sodium 136.5 L Potassium 4.0 Chloride 105 Carbon Dioxide 20 L Anion Gap 12 BUN 14 Creatinine 0.90 Est GFR ( Amer) > 60 Est GFR (Non-Af Amer) > 60 Glucose 135 H Calcium 9.6 05/31/18 20:30 Clean Catch Midstream Urine Culture - Final Escherichia Coli Impressions: Chest X-Ray 05/31/18 17:06 IMPRESSION: NO ACUTE RADIOGRAPHIC FINDING IN THE CHEST. MARKED CARDIOMEGALY Head CT 05/31/18 17:06 IMPRESSION: Low-attenuation from acute or early subacute nonhemorrhagic left frontal infarcts. EVIDENCE OF ACUTE STROKE: Yes Head MRI 06/01/18 08:00 IMPRESSION: Multifocal areas of acute to subacute infarct predominantly within the left cerebral hemisphere within the left JA and bilateral MCA distributions , some areas corresponding to the prior CT. Given the distribution, findings are concerning for embolic infarcts. EVIDENCE OF ACUTE STROKE: NO. Carotid Doppler Study 06/02/18 00:00 IMPRESSION: NO HEMODYNAMICALLY SIGNIFICANT STENOSIS. TORTUOUS VESSELS. 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 Is this a current diagnosis for this admission?: Yes Plan: She has embolic stroke continue IV heparin (2) Embolic stroke involving middle cerebral artery Qualifiers: Laterality of affected vessel: bilateral Qualified Code(s): I63.413 - Cerebral infarction due to embolism of bilateral middle cerebral arteries Is this a current diagnosis for this admission?: Yes (3) Paroxysmal atrial fibrillation Is this a current diagnosis for this admission?: Yes (4) Hypertension Qualifiers: Hypertension type: essential hypertension Qualified Code(s): I10 - Essential (primary) hypertension Is this a current diagnosis for this admission?: Yes
[2018-06-03] MEDS: LABETALOL HCL INJ 20 MG/4 ML DISP.SYRIN IV PRN (00:11)
[2018-06-03 06:09] LABS: ABSOLUTE MONOCYTES (AUTO) 1.4 10^3/uL (0.1-1.4); ABSOLUTE NEUT (AUTO) 8.8 10^3/uL (1.7-8.2); BASOPHILS % (AUTO) 0.3 % (0-2); EOSINOPHILS % (AUTO) 0.3 % (0-6); HEMATOCRIT 38.7 % (36.0-47.0); HEMOGLOBIN 12.7 g/dL (12.0-15.5); LYMPHOCYTES % (AUTO) 8.6 % (13-45); MEAN CORPUSCULAR HEMOGLOBIN 27.1 pg (27.0-33.4); MEAN CORPUSCULAR VOLUME 82 fl (80-97); MONOCYTES % (AUTO) 12.1 % (3-13); PLATELET COUNT 207 10^3/uL (150-450); RED CELL DISTRIBUTION WIDTH 14.5 % (11.5-14.0); SEGMENTED NEUTROPHILS % (AUTO) 78.7 % (42-78); TOTAL CELLS COUNTED % (AUTO) 100 %; WHITE BLOOD COUNT 11.2 10^3/uL (4.0-10.5)
[2018-06-03 06:27] LABS: ANION GAP 11 (5-19); BLOOD UREA NITROGEN 15 mg/dL (7-20); CALCIUM 9.3 mg/dL (8.4-10.2); CARBON DIOXIDE 23 mmol/L (22-30); CHLORIDE 102 mmol/L (98-107); GLUCOSE 111 mg/dL (75-110); POTASSIUM 3.7 mmol/L (3.6-5.0); SODIUM 136.4 mmol/L (137-145)
[2018-06-03] MEDS: HEPARIN SOD (PORCINE) 1,000 UNIT/ML 10 ML VIAL IV PRN (06:52)
[2018-06-03] MEDS: VALSARTAN 160 MG TABLET PO SCH (09:58)
[2018-06-03] MEDS: PANTOPRAZOLE SODIUM 40 MG VIAL IV SCH (09:59)
[2018-06-03] MEDS: HEPARIN SODIUM,PORCINE/D5W 25,000 UNIT/250 ML RTUINJ IV PRN (10:08)
--- NOTE | 2018-06-03 10:17 | XCELERA REPORT ---
[address] [address] Transthoracic Echocardiogram Report Name: GEN WHITE Age: 77 yrs Gender: Female : 1940 Patient Status: Inpatient Patient Location: [address] [place] [address] Study Date: 06/02/2018 01:51 PM Height: 62 in Weight: 196 lb BSA: 1.9 m2 Procedure: A complete two-dimensional transthoracic echocardiogram was performed (2D, M-mode, spectral and color flow Doppler). The study was technically adequate with some images being suboptimal in quality. Reason For Study: left MCA infarct Ordering Physician: EMILY NOWAK Performed By: Yasmin Vergara Interpretation Summary No definite cardiac source of CVA/TIA noted on this particular trans-thoracic study. Consider JAMARCUS if clinically indicated. May consider mobile cardiac telemetry monitoring (MCT) for ruling out transient AFIB. The left ventricular ejection fraction is normal. There is mild concentric left ventricular hypertrophy. The left ventricle is grossly normal size. Doppler measurements suggest reversible restrictive left ventricular relaxation, which is associated with grade III/IV or moderate diastolic dysfunction Wall motion cannot be accurately commented on, but no definite regional wall motion abnormalities noted. The right ventricular systolic function is normal. The right atrium is moderate to severely dilated. The left atrium is severely dilated. There is a mild to moderate amount of mitral regurgitation There is no mitral valve stenosis. There is no aortic valve stenosis There is a mild amount of aortic regurgitation There is a mild amount of tricuspid regurgitation There is moderate pulmonary hypertension by echo Right ventricular systolic pressure is estimated to be elevated at 50-60mmHg. The aortic root is not well visualized but is probably normal size. The inferior vena cava was not well visualized Minimal pericardial effusion. MMode/2D Measurements & Calculations RVDd: 3.5 cm LVIDd: 4.7 cm FS: 40.5 % Ao root diam: 2.9 cm IVSd: 0.93 cm LVIDs: 2.8 cm EDV(Teich): 101.4 ml Ao root area: 6.7 cm2 LVPWd: 0.88 cm ESV(Teich): 29.2 ml EF(Teich): 71.2 % Doppler Measurements & Calculations MV E max karely: MV dec slope: Ao V2 max: LV V1 max P.2 cm/sec 1015 cm/sec2 194.2 cm/sec 5.4 mmHg MV dec time: Ao max PG: LV V1 max: 0.16 sec 15.1 mmHg 116.7 cm/sec PA V2 max: TR max karely: 97.6 cm/sec 318.1 cm/sec PA max P.8 mmHg TR max P.5 mmHg Left Ventricle The left ventricle is grossly normal size. There is mild concentric left ventricular hypertrophy. The left ventricular ejection fraction is normal. Doppler measurements suggest reversible restrictive left ventricular relaxation, which is associated with grade III/IV or moderate diastolic dysfunction. Wall motion cannot be accurately commented on, but no definite regional wall motion abnormalities noted. Right Ventricle The right ventricle is grossly normal size. There is normal right ventricular wall thickness. The right ventricular systolic function is normal. Atria The right atrium is moderate to severely dilated. The left atrium is severely dilated. Interarterial septum not well visualized and not well dopplered. Cannot comment on ASD/PFO presence. Mitral Valve The mitral valve leaflets are sclerotic, but show no functional abnormalities. There is no mitral valve stenosis. There is a mild to moderate amount of mitral regurgitation. Aortic Valve The aortic valve is grossly normal. There is no aortic valve stenosis. There is a mild amount of aortic regurgitation. Tricuspid Valve The tricuspid valve is not well visualized, but is grossly normal. There is no tricuspid stenosis. There is a mild amount of tricuspid regurgitation. There is moderate pulmonary hypertension by echo. Right ventricular systolic pressure is estimated to be elevated at 50-60mmHg. Pulmonic Valve The pulmonic valve is not well visualized. Great Vessels The aortic root is not well visualized but is probably normal size. The inferior vena cava was not well visualized. Effusions Minimal pericardial effusion. Incidental Findings No definite cardiac source of CVA/TIA noted on this particular trans-thoracic study. Consider JAMARCUS if clinically indicated. May consider mobile cardiac telemetry monitoring (MCT) for ruling out transient AFIB. : EMILY NOWAK > Birgit Bishop
[2018-06-03 14:27] LABS: INTERNATIONAL RATION (INR) 1.13; PROTHROMBIN TIME 15.1 SEC (11.4-15.4)
[2018-06-03] MEDS ORDERED: METOPROLOL SUCCINATE 50 MG TAB.SR.24H PO SCH (18:00)
[2018-06-03] MEDS ORDERED: OXYCODONE-ACETAMINOPHEN 5-325 MG TABLET PO PRN (18:27)
[2018-06-03] MEDS: APIXABAN 5 MG TABLET PO SCH (18:59)
--- NOTE | 2018-06-03 21:09 | PDOC PROGRESS REPORT ---
Subjective Progress Note for:: 06/03/18 Subjective:: Patient with embolic stroke, the intravenous heparin will be transitioned to p.o. Eliquis, 2D echo was done it demonstrated grade 3 diastolic dysfunction of left ventricle dilated left atrium Reason For Visit: ACUTE LEFT MCA INFARCTION Physical Exam Vital Signs: Temp Pulse Resp BP Pulse Ox 99.8 F 78 22 H 141/94 H 99 06/03/18 19:52 06/03/18 19:52 06/03/18 19:52 06/03/18 19:52 06/03/18 19:52 Intake & Output 06/02/18 06/03/18 06/04/18 06:59 06:59 06:59 Intake Total 1119 274 311 Balance 1119 274 311 Weight 89.8 kg 87.6 kg General appearance: PRESENT: no acute distress Eye exam: PRESENT: PERRLA Respiratory exam: PRESENT: clear to auscultation kyle Cardiovascular exam: PRESENT: +S1, +S2 GI/Abdominal exam: PRESENT: soft Neurological exam: PRESENT: alert Results Laboratory Results: 06/03/18 05:58 06/03/18 05:58 06/03/18 06/03/18 05:58 05:58 WBC 11.2 H RBC 4.70 Hgb 12.7 Hct 38.7 MCV 82 MCH 27.1 MCHC 33.0 RDW 14.5 H Plt Count 207 Seg Neutrophils % 78.7 H Lymphocytes % 8.6 L Monocytes % 12.1 Eosinophils % 0.3 Basophils % 0.3 Absolute Neutrophils 8.8 H Absolute Lymphocytes 1.0 Absolute Monocytes 1.4 Absolute Eosinophils 0.0 Absolute Basophils 0.0 Sodium 136.4 L Potassium 3.7 Chloride 102 Carbon Dioxide 23 Anion Gap 11 BUN 15 Creatinine 0.99 Est GFR ( Amer) > 60 Est GFR (Non-Af Amer) 55 L Glucose 111 H Calcium 9.3 Impressions: Chest X-Ray 05/31/18 17:06 IMPRESSION: NO ACUTE RADIOGRAPHIC FINDING IN THE CHEST. MARKED CARDIOMEGALY Head CT 05/31/18 17:06 IMPRESSION: Low-attenuation from acute or early subacute nonhemorrhagic left frontal infarcts. EVIDENCE OF ACUTE STROKE: Yes Head MRI 06/01/18 08:00 IMPRESSION: Multifocal areas of acute to subacute infarct predominantly within the left cerebral hemisphere within the left JA and bilateral MCA distributions , some areas corresponding to the prior CT. Given the distribution, findings are concerning for embolic infarcts. EVIDENCE OF ACUTE STROKE: NO. Carotid Doppler Study 06/02/18 00:00 IMPRESSION: NO HEMODYNAMICALLY SIGNIFICANT STENOSIS. TORTUOUS VESSELS. 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 Is this a current diagnosis for this admission?: Yes (2) Embolic stroke involving middle cerebral artery Qualifiers: Laterality of affected vessel: bilateral Qualified Code(s): I63.413 - Cerebral infarction due to embolism of bilateral middle cerebral arteries Is this a current diagnosis for this admission?: Yes (3) Paroxysmal atrial fibrillation Is this a current diagnosis for this admission?: Yes Plan: Start Eliquis (4) Hypertension Qualifiers: Hypertension type: essential hypertension Qualified Code(s): I10 - Essential (primary) hypertension Is this a current diagnosis for this admission?: Yes (5) Grade III diastolic dysfunction Is this a current diagnosis for this admission?: Yes (6) Left atrial dilatation Is this a current diagnosis for this admission?: Yes (7) Essential (primary) hypertension Is this a current diagnosis for this admission?: Yes Plan: Start metoprolol succinate, increase valsartan to 320 mg
[2018-06-03] MEDS: ATORVASTATIN CALCIUM 80 MG TABLET PO SCH (21:33)
[2018-06-04 04:51] LABS: HEMATOCRIT 36.4 % (36.0-47.0); HEMOGLOBIN 12.1 g/dL (12.0-15.5); MEAN CORPUSCULAR HEMOGLOBIN 27.4 pg (27.0-33.4); MEAN CORPUSCULAR HGB CONC 33.3 g/dL (32.0-36.0); MEAN CORPUSCULAR VOLUME 82 fl (80-97); PLATELET COUNT 184 10^3/uL (150-450); RED BLOOD COUNT 4.43 10^6/uL (3.72-5.28); RED CELL DISTRIBUTION WIDTH 14.4 % (11.5-14.0); WHITE BLOOD COUNT 7.8 10^3/uL (4.0-10.5)
[2018-06-04] MEDS: APIXABAN 5 MG TABLET PO SCH ×2 (09:36→17:45)
[2018-06-04] MEDS: VALSARTAN 160 MG TABLET PO SCH (09:36)
[2018-06-04] MEDS: LANSOPRAZOLE 30 MG TAB.RAP.DR PO SCH (17:45)
[2018-06-04] MEDS ORDERED: METOPROLOL SUCCINATE 50 MG TAB.SR.24H PO SCH (18:00)
--- NOTE | 2018-06-04 18:28 | PDOC PROGRESS REPORT ---
Subjective Progress Note for:: 06/04/18 Subjective:: Patient was seen by the bedside, family by the bedside, she has embolic CVA, she is somewhat confused, she was started on metoprolol succinate yesterday but patient tends to chew on her medication, metoprolol succinate is a slow release medication, it should not be too so this was discontinued patient is started on metoprolol titrate. Awaiting bed for rehab, patient prefer [facility] he was admitting discharge planning working on that Reason For Visit: ACUTE LEFT MCA INFARCTION Physical Exam Vital Signs: Temp Pulse Resp BP Pulse Ox 100.4 F 76 16 144/79 H 96 06/04/18 15:33 06/04/18 15:33 06/04/18 15:33 06/04/18 15:33 06/04/18 15:33 Intake & Output 06/03/18 06/04/18 06/05/18 06:59 06:59 06:59 Intake Total 274 311 250 Balance 274 311 250 Weight 87.6 kg 86.9 kg General appearance: PRESENT: no acute distress Eye exam: PRESENT: PERRLA Respiratory exam: PRESENT: clear to auscultation kyle Cardiovascular exam: PRESENT: irregular rhythm, +S1, +S2 GI/Abdominal exam: PRESENT: soft Neurological exam: PRESENT: alert Results Laboratory Results: 06/04/18 04:29 06/03/18 05:58 06/04/18 04:29 WBC 7.8 RBC 4.43 Hgb 12.1 Hct 36.4 MCV 82 MCH 27.4 MCHC 33.3 RDW 14.4 H Plt Count 184 Impressions: Chest X-Ray 05/31/18 17:06 IMPRESSION: NO ACUTE RADIOGRAPHIC FINDING IN THE CHEST. MARKED CARDIOMEGALY Head CT 05/31/18 17:06 IMPRESSION: Low-attenuation from acute or early subacute nonhemorrhagic left frontal infarcts. EVIDENCE OF ACUTE STROKE: Yes Head MRI 06/01/18 08:00 IMPRESSION: Multifocal areas of acute to subacute infarct predominantly within the left cerebral hemisphere within the left JA and bilateral MCA distributions , some areas corresponding to the prior CT. Given the distribution, findings are concerning for embolic infarcts. EVIDENCE OF ACUTE STROKE: NO. Carotid Doppler Study 06/02/18 00:00 IMPRESSION: NO HEMODYNAMICALLY SIGNIFICANT STENOSIS. TORTUOUS VESSELS. 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 Is this a current diagnosis for this admission?: Yes (2) Embolic stroke involving middle cerebral artery Qualifiers: Laterality of affected vessel: bilateral Qualified Code(s): I63.413 - Cerebral infarction due to embolism of bilateral middle cerebral arteries Is this a current diagnosis for this admission?: Yes (3) Paroxysmal atrial fibrillation Is this a current diagnosis for this admission?: Yes (4) Hypertension Qualifiers: Hypertension type: essential hypertension Qualified Code(s): I10 - Essential (primary) hypertension Is this a current diagnosis for this admission?: Yes (5) Grade III diastolic dysfunction Is this a current diagnosis for this admission?: Yes (6) Left atrial dilatation Is this a current diagnosis for this admission?: Yes (7) Essential (primary) hypertension Is this a current diagnosis for this admission?: Yes - Plan Summary Plan Summary: Continue treatment
[2018-06-04] MEDS: ATORVASTATIN CALCIUM 80 MG TABLET PO SCH (21:51)
[2018-06-05] MEDS: LANSOPRAZOLE 30 MG TAB.RAP.DR PO SCH ×2 (05:29→17:36)
[2018-06-05] MEDS: METOPROLOL TARTRATE 25 MG TABLET PO SCH ×2 (09:40→22:01)
[2018-06-05] MEDS: VALSARTAN 160 MG TABLET PO SCH (09:40)
[2018-06-05] MEDS: APIXABAN 5 MG TABLET PO SCH ×2 (09:40→17:36)
--- NOTE | 2018-06-05 19:31 | PDOC PROGRESS REPORT ---
Subjective Progress Note for:: 06/05/18 Subjective:: Patient was seen by the bedside, she has a room at [facility] in [place] she be going tomorrow for rehab Reason For Visit: ACUTE LEFT MCA INFARCTION Physical Exam Vital Signs: Temp Pulse Resp BP Pulse Ox 97.9 F 65 16 137/89 H 99 06/05/18 16:15 06/05/18 16:15 06/05/18 16:15 06/05/18 16:15 06/05/18 16:15 Intake & Output 06/04/18 06/05/18 06/06/18 06:59 06:59 06:59 Intake Total 311 250 150 Balance 311 250 150 Weight 86.9 kg 87 kg General appearance: PRESENT: no acute distress Eye exam: PRESENT: PERRLA Respiratory exam: PRESENT: symmetrical Cardiovascular exam: PRESENT: +S1, +S2 Neurological exam: PRESENT: alert, motor sensory deficit Results Laboratory Results: 06/04/18 04:29 06/03/18 05:58 Impressions: Chest X-Ray 05/31/18 17:06 IMPRESSION: NO ACUTE RADIOGRAPHIC FINDING IN THE CHEST. MARKED CARDIOMEGALY Head CT 05/31/18 17:06 IMPRESSION: Low-attenuation from acute or early subacute nonhemorrhagic left frontal infarcts. EVIDENCE OF ACUTE STROKE: Yes Head MRI 06/01/18 08:00 IMPRESSION: Multifocal areas of acute to subacute infarct predominantly within the left cerebral hemisphere within the left JA and bilateral MCA distributions , some areas corresponding to the prior CT. Given the distribution, findings are concerning for embolic infarcts. EVIDENCE OF ACUTE STROKE: NO. Carotid Doppler Study 06/02/18 00:00 IMPRESSION: NO HEMODYNAMICALLY SIGNIFICANT STENOSIS. TORTUOUS VESSELS. 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 Is this a current diagnosis for this admission?: Yes (2) Embolic stroke involving middle cerebral artery Qualifiers: Laterality of affected vessel: bilateral Qualified Code(s): I63.413 - Cerebral infarction due to embolism of bilateral middle cerebral arteries Is this a current diagnosis for this admission?: Yes (3) Paroxysmal atrial fibrillation Is this a current diagnosis for this admission?: Yes (4) Hypertension Qualifiers: Hypertension type: essential hypertension Qualified Code(s): I10 - Essential (primary) hypertension Is this a current diagnosis for this admission?: Yes (5) Grade III diastolic dysfunction Is this a current diagnosis for this admission?: Yes (6) Left atrial dilatation Is this a current diagnosis for this admission?: Yes (7) Essential (primary) hypertension Is this a current diagnosis for this admission?: Yes
--- NOTE | 2018-06-05 19:52 | PDOC TRANSFER SUMMARY ---
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 Is this a current diagnosis for this admission?: Yes (2) Embolic stroke involving middle cerebral artery Is this a current diagnosis for this admission?: Yes (3) Paroxysmal atrial fibrillation Is this a current diagnosis for this admission?: Yes (4) Hypertension Is this a current diagnosis for this admission?: Yes (5) Grade III diastolic dysfunction Is this a current diagnosis for this admission?: Yes (6) Left atrial dilatation Is this a current diagnosis for this admission?: Yes (7) Essential (primary) hypertension Is this a current diagnosis for this admission?: Yes - Additional Information Resuscitation Status: Full Code Home Medications: Albuterol Sulfate [Proair HFA] 1 puff IH Q4HP PRN 06/02/18 Budesonide/Formoterol Fumarate [Symbicort HFA 160-4.5 mcg Inhaler 6 gm] 2 puff IH Q12 06/02/18 Acetaminophen [Tylenol 650 mg Supp] 650 mg MT Q4HP PRN supp.rect 06/05/18 Apixaban [Eliquis 5 mg Tablet] 5 mg PO BID tablet 06/05/18 Atorvastatin Calcium [Lipitor 80 mg Tablet] 80 mg PO QHS tablet 06/05/18 Lansoprazole [Prevacid 30 mg Odt Tablet] 30 mg PO BID@0600,1700 tab.rap.dr 07/13 Metoprolol Tartrate [Lopressor 25 mg Tablet] 25 mg PO Q12 tablet 06/05/18 Valsartan [Diovan 160 mg Tablet] 320 mg PO DAILY tablet 06/05/18 History of Present Illness Admission Date/PCP: 05/31/18 19:40 ANGEL TAM MD History of Present Illness: GEN WHITE is a 77 year old female,She presented to the emergency room for evaluation of right-sided weakness and inability to speak, CT head was done when she presented on 05/31/2018, it demonstrated acute or early subacute nonhemorrhagic left frontal infarct. She also was found to have atrial fibrillation Hospital Course Hospital Course: Patient was admitted for embolic CVA, in the setting of atrial fibrillation, she was aphasic on admission, she was treated with intravenous heparin for 72 hours. 2D echo was done, it demonstrated normal ejection fraction of left ventricle, concentric LVH the left atrium is severely dilated. There is also pulmonary hypertension,The carotid Doppler was negative for significant atherosclerosis, or stenosis.The anticoagulant was transitioned to Eliquis, MRI brain was done it confirmeed multifocal infarcts involving both cerebral hemisphere consistent with an embolic stroke Physical Exam Vital Signs: Temp Pulse Resp BP Pulse Ox 97.9 F 65 16 137/89 H 99 06/05/18 16:15 06/05/18 16:15 06/05/18 16:15 06/05/18 16:15 06/05/18 16:15 Intake & Output 06/04/18 06/05/18 06/06/18 06:59 06:59 06:59 Intake Total 311 250 150 Balance 311 250 150 Weight 86.9 kg 87 kg General appearance: PRESENT: no acute distress Head exam: PRESENT: atraumatic, normocephalic Eye exam: PRESENT: PERRLA Respiratory exam: PRESENT: clear to auscultation kyle Cardiovascular exam: PRESENT: RRR, +S1, +S2 Vascular exam: PRESENT: normal capillary refill GI/Abdominal exam: PRESENT: normal bowel sounds, soft Rectal exam: PRESENT: deferred Neurological exam: PRESENT: alert, CN II-XII grossly intact Psychiatric exam: PRESENT: appropriate affect, normal mood Skin exam: PRESENT: dry, intact, warm Results Laboratory Results: 06/04/18 04:29 06/03/18 05:58 Impressions: Chest X-Ray 05/31/18 17:06 IMPRESSION: NO ACUTE RADIOGRAPHIC FINDING IN THE CHEST. MARKED CARDIOMEGALY Head CT 05/31/18 17:06 IMPRESSION: Low-attenuation from acute or early subacute nonhemorrhagic left frontal infarcts. EVIDENCE OF ACUTE STROKE: Yes Head MRI 06/01/18 08:00 IMPRESSION: Multifocal areas of acute to subacute infarct predominantly within the left cerebral hemisphere within the left JA and bilateral MCA distributions , some areas corresponding to the prior CT. Given the distribution, findings are concerning for embolic infarcts. EVIDENCE OF ACUTE STROKE: NO. Carotid Doppler Study 06/02/18 00:00 IMPRESSION: NO HEMODYNAMICALLY SIGNIFICANT STENOSIS. TORTUOUS VESSELS. Qualifiers - * PATIENT BEING DISCHARGED WITH ANY OF THE FOLLOWING DIAGNOSIS: Stroke VTE patient discharged on overlapping Therapy?: Yes Stroke Pt being discharged on Anti-thrombolytic therapy?: Yes Stroke Pt being discharged on Anti-coagulation therapy?: No Reason(s) for not prescribing Anti-coagulation therapy:: Contraindicated Stroke Pt being discharged on Statins?: Yes
[2018-06-05] MEDS: ATORVASTATIN CALCIUM 80 MG TABLET PO SCH (22:01)
[2018-06-06 05:31] LABS: HEMATOCRIT 37.4 % (36.0-47.0); HEMOGLOBIN 12.3 g/dL (12.0-15.5); MEAN CORPUSCULAR HEMOGLOBIN 26.9 pg (27.0-33.4); MEAN CORPUSCULAR HGB CONC 32.9 g/dL (32.0-36.0); MEAN CORPUSCULAR VOLUME 82 fl (80-97); PLATELET COUNT 218 10^3/uL (150-450); RED BLOOD COUNT 4.58 10^6/uL (3.72-5.28); WHITE BLOOD COUNT 6.1 10^3/uL (4.0-10.5)
[2018-06-06] MEDS: LANSOPRAZOLE 30 MG TAB.RAP.DR PO SCH (06:34)
[2018-06-06] MEDS: VALSARTAN 160 MG TABLET PO SCH (09:01)
[2018-06-06] MEDS: METOPROLOL TARTRATE 25 MG TABLET PO SCH (09:01)
[2018-06-06] MEDS: APIXABAN 5 MG TABLET PO SCH (09:02)
[2018-06-06 12:09] VITALS: BP 139/78
== END 2018-06-06 15:32 | DRG 65 ==
LOC: ER 17:05 → EH 19:40 → 3W 21:34
PROVIDERS: ADMIT Emergency Medicine; ATTEND Internal Medicine
DX: I63.422 Cerebral infarction due to embolism of left anterior cerebral artery (principal); G81.91 Hemiplegia, unspecified affecting right dominant side; I63.413 Cerebral infarction due to embolism of bilateral middle cerebral arteries; R47.01 Aphasia; I48.0 Paroxysmal atrial fibrillation; I27.20 Pulmonary hypertension, unspecified; I10 Essential (primary) hypertension; R41.82 Altered mental status, unspecified; E78.5 Hyperlipidemia, unspecified; R82.71 Bacteriuria; M15.9 Polyosteoarthritis, unspecified; Q24.8 Other specified congenital malformations of heart; Z60.2 Problems related to living alone; Z79.01 Long term (current) use of anticoagulants; Z79.51 Long term (current) use of inhaled steroids; Z79.899 Other long term (current) drug therapy
CPT/HCPCS: 36415; 70450; 70551; 71045; 80048; 80053; 80061; 81001; 82550; 82553; 82962; 83036; 84484; 85025; 85027; 85610; 85730; 87086; 87088; 87186; 93005; 93010; 93306; 93880; 99285; G8978-GP; G8979-GP; G8987-GO; G8988-GO; G8996-GN; G8997-GN; G8998-GN; J1644; J1650; J3480; J3490; S0164